=== PATIENT | female | born 1990 | race African-American/Black ===

== ENCOUNTER 2018-10-23 09:14 | Emergency (ER) | payer OTHER ==
[~2018-10-23] VITALS: Ht 160 cm; Wt 86.6 kg
[2018-10-23 09:18] VITALS: Ht 160 cm; Wt 86.6 kg
[2018-10-23 09:47] LABS: PLATELET COUNT 263 x10^3mcL (130-400); RED CELL DISTRIBUTION WIDTH 13.8 % (11.5-14.5)
[2018-10-23 09:51] LABS: BASOPHIL % 0 % (0-2)
[2018-10-23 10:00] LABS: CALCIUM 9.6 mg/dL (8.5-10.1); CARBON DIOXIDE 22.7 mmol/L (21-32); CHLORIDE SERUM 101 mmol/L (98-107); CREATININE SERUM 0.8 mg/dL (0.6-1.0); GFR1 > 60 mL/min; GLUCOSE SERUM 93 mg/dL (74-106); POTASSIUM SERUM 3.5 mmol/L (3.5-5.1); SODIUM SERUM 137 mmol/L (136-145)
[2018-10-23 10:05] LABS: ALBUMIN 3.5 g/dL (3.4-5.0); ALKALINE PHOSPHATASE 51 U/L (46-116); ALT/SGPT 20 U/L (14-59); AST/SGOT 12 U/L (15-37); BILIRUBIN TOTAL 0.33 mg/dL (0.20-1.00); TOTAL PROTEIN, SERUM 7.6 g/dL (6.4-8.2)
[2018-10-23 11:57] VITALS: BP 121/61
== END 2018-10-23 11:57 | disposition home or self-care (01) ==
LOC: ED 09:14
PROVIDERS: Emergency Medicine
DX: O26.611 Liver and biliary tract disorders in pregnancy, first trimester (principal); D18.03 Hemangioma of intra-abdominal structures; R06.00 Dyspnea, unspecified; R07.89 Other chest pain; J45.909 Unspecified asthma, uncomplicated; Z3A.08 8 weeks gestation of pregnancy
CPT/HCPCS: 36415; 85378; Q0092; Q9967

== ENCOUNTER 2018-10-25 12:11 | Emergency (ER) | payer OTHER ==
[~2018-10-25] VITALS: Ht 162.6 cm; Wt 88.0 kg
[2018-10-25 12:26] VITALS: Ht 162.6 cm; Wt 88.0 kg
[2018-10-25 15:18] VITALS: BP 115/62
== END 2018-10-25 15:23 | disposition home or self-care (01) ==
LOC: ED 12:11
DX: O34.81 Maternal care for other abnormalities of pelvic organs, first trimester (principal); O30.001 Twin pregnancy, unspecified number of placenta and unspecified number of amniotic sacs, first trimester; N83.202 Unspecified ovarian cyst, left side; J45.909 Unspecified asthma, uncomplicated; Z3A.08 8 weeks gestation of pregnancy

== ENCOUNTER 2018-10-29 10:52 | Emergency (ER) | payer OTHER ==
[~2018-10-29] VITALS: Ht 160 cm; Wt 88.0 kg
[2018-10-29 10:55] VITALS: Ht 160 cm; Wt 88.0 kg
[2018-10-29 11:18] LABS: microscopic required? NO
[2018-10-29 11:33] LABS: UA SPECIFIC GRAVITY 1.015 (1.005-1.035); urine erythrocyte NEGATIVE (NEGATIVE)
[2018-10-29 12:20] LABS: BASOPHIL % 0.3 % (0-2); PLATELET COUNT 305 x10^3mcL (130-400); RED CELL DISTRIBUTION WIDTH 12.8 % (11.5-14.5)
[2018-10-29 15:00] VITALS: BP 125/69
== END 2018-10-29 15:33 | disposition home or self-care (01) ==
LOC: ED 10:52
PROVIDERS: Emergency Medicine
DX: O34.81 Maternal care for other abnormalities of pelvic organs, first trimester (principal); N83.202 Unspecified ovarian cyst, left side; J45.909 Unspecified asthma, uncomplicated; Z3A.01 Less than 8 weeks gestation of pregnancy
CPT/HCPCS: 36415

== ENCOUNTER 2019-03-23 11:14 | Emergency (ER) | payer OTHER ==
[~2019-03-23] VITALS: Ht 162.6 cm; Wt 93.0 kg
[2019-03-23 12:44] VITALS: Ht 162.6 cm; Wt 93.0 kg
[2019-03-23 14:16] LABS: BASOPHIL % 0.8 % (0-2); PLATELET COUNT 300 x10^3mcL (130-400); RED CELL DISTRIBUTION WIDTH 14.5 % (11.5-14.5)
[2019-03-23 14:29] LABS: CALCIUM 9.1 mg/dL (8.5-10.1); CARBON DIOXIDE 27.6 mmol/L (21-32); CHLORIDE SERUM 104 mmol/L (98-107); CREATININE SERUM 0.8 mg/dL (0.6-1.0); GFR1 > 60 mL/min; GLUCOSE SERUM 92 mg/dL (74-106); POTASSIUM SERUM 3.8 mmol/L (3.5-5.1); SODIUM SERUM 140 mmol/L (136-145)
[2019-03-23 14:41] LABS: ALBUMIN 3.8 g/dL (3.4-5.0); ALKALINE PHOSPHATASE 59 U/L (46-116); ALT/SGPT 21 U/L (14-59); AST/SGOT 20 U/L (15-37); BILIRUBIN TOTAL 0.3 mg/dL (0.20-1.00); CHOLESTEROL 147 mg/dL (<200); LIPASE 136 IU/L (73-393); MAGNESIUM 1.8 mg/dL (1.8-2.4); T4(THYROXINE) 8.3 ug/dL (4.7-13.3); TOTAL PROTEIN, SERUM 8.2 g/dL (6.4-8.2)
[2019-03-23 16:06] VITALS: BP 106/59
== END 2019-03-23 16:00 | disposition home or self-care (01) ==
LOC: ED 11:14
PROVIDERS: Emergency Medicine
DX: R42 Dizziness and giddiness (principal); R53.1 Weakness; G47.00 Insomnia, unspecified; J45.909 Unspecified asthma, uncomplicated; E66.9 Obesity, unspecified; Z68.35 Body mass index [BMI] 35.0-35.9, adult; Z86.2 Personal history of diseases of the blood and blood-forming organs and certain disorders involving the immune mechanism
CPT/HCPCS: 36415; 82962; J2310